=== PATIENT | female | born 1955 | race Caucasian/White ===

== ENCOUNTER 2024-09-05 11:03 | Emergency (ER) | payer MEDICARE, OTHER ==
[~2024-09-05] VITALS: Ht 152.4 cm; Wt 73.0 kg
[~2024-09-05 11:03] MED LIST: AMLO10TA80 PO; ASPI-1406 PO; CIME400T PO; HYDR-4001 PO; LEVE1000 MT; LEVO750T68 MT; LOSA100T33 PO; METF-416 PO; METO25TA6 PO
[2024-09-05 11:12] VITALS: O2SAT 98
[2024-09-05 11:26] VITALS: BP 150/64; PULSE 94; RESP 18; TEMP 37.11408; O2SAT 98
[2024-09-05] MEDS ORDERED: TOPUD MT (12:12)
[2024-09-05] MEDS: KETOROLAC 30MG/ML VIAL IM ONE (12:17)
== END 2024-09-05 12:55 | disposition home or self-care (01) ==
LOC: ER 11:15
DX: R09.89 Other specified symptoms and signs involving the circulatory and respiratory systems (principal); I10 Essential (primary) hypertension; Z88.0 Allergy status to penicillin; Z88.2 Allergy status to sulfonamides; Z79.899 Other long term (current) drug therapy
CPT/HCPCS: 99283; 96372; J1885